=== PATIENT | male | born 1935 | race Caucasian/White ===

== ENCOUNTER 2023-11-15 20:32 | Inpatient (IN) | payer MEDICARE, OTHER ==
[~2023-11-15] VITALS: Ht 177.8 cm; Wt 75.8 kg
--- NOTE | 2023-11-15 20:38 | NUR ---
BIB [facility] FROM [facility] FOR AGITATION CLIENT DEVELOPMENT MANAGER TOOK ATIVAN 1MG. ARRIVED AT [facility] FROM [facility] TODAY BUT NOT ADMITTED, PLACED TO BED AND HOOKED INTO A MONITOR
--- NOTE | 2023-11-15 21:08 | NUR ---
MILL HOUSE SUPERVISOR AT BEDSIDE
--- NOTE | 2023-11-15 21:20 | NUR ---
IV INSERTED G18 R AC, BLOOD DRAWN SENT TO LAB,
--- NOTE | 2023-11-15 21:22 | NUR ---
URINE SPECIMEN COLLECTED SENT TO LAB
--- NOTE | 2023-11-15 21:25 | NUR ---
B2B MANAGED SERVICE SALES EXEC AT BEDSIDE
[2023-11-15] MEDS: IV NS 0.9% 1,000 ML BAG IV ONE (21:27)
[2023-11-15 21:32] LABS: BASOPHILS # (AUTO) 0.1 K/uL (0.0-0.2); BASOPHILS % (AUTO) 0.7 % (0.0-2.0); EOSINOPHILS # (AUTO) 0.1 K/uL (0.0-0.7); EOSINOPHILS % (AUTO) 1.1 % (0.0-6.0); HEMATOCRIT 30 % (39-51); HEMOGLOBIN 9.6 g/dL (13.5-17.5); LYMPHOCYTES # (AUTO) 2.1 K/uL (0.8-4.8); LYMPHOCYTES % (AUTO) 17.8 % (20.0-44.0); MEAN CORPUSCULAR HEMOGLOBIN 27 PG (26.0-33.0); MEAN CORPUSCULAR HGB CONC 33 g/dl (31.0-36.0); MEAN CORPUSCULAR VOLUME 84 fL (80-96); MONOCYTES # (AUTO) 1.4 K/uL (0.1-1.30); NEUTROPHILS # (AUTO) 8.1 K/uL (1.8-8.9); NEUTROPHILS % (AUTO) 68.4 % (43.0-81.0); PLATELET COUNT (AUTO) 526 K/uL (150-450); RED BLOOD CELL COUNT(AUTO) 3.54 MIL/uL (4.5-6.0); RED CELL DISTRIBUTION WIDTH 15.3 % (11.5-15.0); WHITE BLOOD COUNT (AUTO) 11.8 K/uL (4.3-11.0)
[2023-11-15 21:45] LABS: CALCIUM, SERUM 8.6 mg/dL (8.5-10.1); CARBON DIOXIDE 26 mmol/L (21-32); CHLORIDE 102 mmol/L (98-107); CREATININE 1.7 mg/dL (0.6-1.3); GLUCOSE 177 mg/dL (74-106); POTASSIUM 4.5 mmol/L (3.5-5.1); SODIUM SERUM 137 mmol/L (136-145); UREA NITROGEN, BLOOD 33 mg/dL (7-18)
[2023-11-15 22:13] LABS: APPEARANCE,URINE CLEAR (CLEAR); BILIRUBIN,URINE NEGATIVE (NEGATIVE); BLOOD, URINE NEGATIVE Ery/uL (NEGATIVE); COLOR,URINE YELLOW (YELLOW); KETONES,URINE 1+ mg/dL (NEGATIVE); LEUKOCYTE ESTERASE ,URINE NEGATIVE (NEGATIVE); NITRITE, URINE NEGATIVE (NEGATIVE); PROTEIN,URINE TRACE mg/dl (NEGATIVE); UGLUCOSE TRACE mg/dL (NEGATIVE); UROBILINOGEN,URINE 0.2 EU/dL (0.2)
[2023-11-15 22:27] LABS: ADD URINE CULTURE NO; BACTERIA,URINE Rare /HPF (None Seen); RBC,URINE 0-2 /HPF (0-2); SQUAMOUS EPITHELIAL CELL,UR Many /HPF (None Seen); WBC,URINE 0-2 /HPF (0-3)
--- NOTE | 2023-11-15 22:29 | NUR ---
310 BED 1
[2023-11-15] MEDS ORDERED: Z GUARD REMEDY 4 OZ OINT TP PRN (22:30)
[2023-11-15 22:41] LABS: AMPHETAMINE, URINE NEGATIVE (NEGATIVE); BARBITURATE, URINE NEGATIVE (NEGATIVE); BENZODIAZEPINE, URINE NEGATIVE (NEGATIVE); CANNABINOID, URINE NEGATIVE (NEGATIVE); COCCAINE, URINE NEGATIVE (NEGATIVE); OPIATE, URINE NEGATIVE (NEGATIVE); PHENCYCLIDINE SCREEN,URINE NEGATIVE (NEGATIVE)
--- NOTE | 2023-11-15 22:55 | NUR ---
OFERRED SIPS OF WATER ON HIF=GH FOWLERS POSITION, TOLERATED WELL, SAP OBSERVED.
--- NOTE | 2023-11-15 22:55 | NUR ---
OCEAN BIOLOGIST AT BEDSIDE
--- NOTE | 2023-11-15 23:04 | NUR ---
report given to Gloria DALE
--- NOTE | 2023-11-15 23:10 | NUR ---
TRASFERRED PATIENT TO ROOM 310
[2023-11-15 23:20] VITALS: BP 127/67; TEMP 97.9; O2SAT 96
--- NOTE | 2023-11-15 23:30 | NUR ---
ADMITTED PATIENT FROM ED DUE TO AGITATION DURING TRANSFER TO [facility]. SUPPOSED TO BE ADMITTED IN [facility], PATIENT WAS AGITATED DURING AMBULANCE TRANSPORT THAT THE FACILITY REFUSED TO ADMIT PATIENT. PER REPORT, WAS GIVEN ATIVAN EN ROUTE. DX DEHYDRATION AND ACUTE KIDNEY INJURY WITH CREATININE OF 1.7. ON ADMISSION, PATIENT IS ASLEEP, AROUSEABLE BY VOICE AND TOUCH, ANSWERS NAME, BIRTHDAY, LOCATION, CURRENT YEAR AND PRESIDENT. NO HOME MEDICATIONS, NS AT 75 ML/HR. SKIN ASSESSMENT, MULTIPLE SCRATCHES WITH SCABS, RIGHT BIG TOE WOUND AND LEFT KNEE WOUND. PASSED BEDSIDE SWALLOW EVAL. KEPT SAFE, WILL CONTINUE TO MONITOR.
[2023-11-15 23:50] VITALS: BP 122/67; TEMP 97.9; O2SAT 97
[2023-11-16] MEDS: IV NS 0.9% 1,000 ML IV SCH (00:19)
--- NOTE | 2023-11-16 03:20 | NUR ---
BVI 133 ML
--- NOTE | 2023-11-16 06:16 | NUR ---
NO URINE OUTPUT SINCE ADMISSION IN UNIT, BLADDER SCAN AT 0320H 133 ML AND AT 0533H, BVI > 200, NOTIFIED SAIRA HERNANDEZ, ORDERED IN AND OUT CATH IF BVI > 300, IF NO URINE OUTPUT AND STRAIGHT CATH PERFORMED X2, THEN INSERT CARRILLO. URINE OUTPUT VIA STRAIGHT CATH 400 ML.
[2023-11-16] MEDS: INSULIN REGULAR, HUMAN 100 UNIT/ML 3 ML VIAL SQ PRN ×2 (06:31→11:12)
--- NOTE | 2023-11-16 06:33 | NUR ---
CONFUSED, ALERT/ORIENTED X2, ROOM AIR, NO COMPLAIN OF PAIN, SLEPT FOR 8 HOURS. HAD EPISODE OF COMBATIVENESS DURING STRAIGHT CATH. WOUND CONSULT FOR SACRAL WOUND, RIGHT BIG TOE WOUND, LEFT KNEE ABRASION. RENAL US, RIGHT RENAL CYST. NS AT 75 ML/HR, URINARY RETENTION, SEE ORDER FOR STRAIGHT CATH, POSSIBLE CARRILLO CATHETER PLACEMENT IF NO URINE OUTPUT. FALL PRECAUTION, ACCUCHECK AND SLIDING SCALE.
[2023-11-16 06:39] LABS: BASOPHILS % (AUTO) 0.3 % (0.0-2.0); EOSINOPHILS # (AUTO) 0.2 K/uL (0.0-0.7); EOSINOPHILS % (AUTO) 3.2 % (0.0-6.0); HEMATOCRIT 31 % (39-51); HEMOGLOBIN 10.1 g/dL (13.5-17.5); MEAN CORPUSCULAR HEMOGLOBIN 28 PG (26.0-33.0); MEAN CORPUSCULAR HGB CONC 33 g/dl (31.0-36.0); MEAN CORPUSCULAR VOLUME 84 fL (80-96); MONOCYTES % (AUTO) 12.6 % (2.0-12.0); NEUTROPHILS # (AUTO) 4.4 K/uL (1.8-8.9); NEUTROPHILS % (AUTO) 57.9 % (43.0-81.0); PLATELET COUNT (AUTO) 504 K/uL (150-450); RED BLOOD CELL COUNT(AUTO) 3.68 MIL/uL (4.5-6.0); RED CELL DISTRIBUTION WIDTH 14.9 % (11.5-15.0); WHITE BLOOD COUNT (AUTO) 7.7 K/uL (4.3-11.0)
[2023-11-16 07:30] VITALS: BP 143/87; TEMP 98.1; O2SAT 100
[2023-11-16] MEDS: BLOOD SUGAR DIAGNOSTIC 1 EACH STRIP IN SCH ×2 (07:34→11:11)
[2023-11-16 07:36] LABS: CALCIUM, SERUM 8.9 mg/dL (8.5-10.1); CARBON DIOXIDE 23 mmol/L (21-32); CHLORIDE 106 mmol/L (98-107); CREATININE 1.4 mg/dL (0.6-1.3); GLUCOSE 112 mg/dL (74-106); MAGNESIUM 2.4 mg/dL (1.8-2.4); PHOSPHORUS 4.7 mg/dL (2.5-4.9); SODIUM SERUM 139 mmol/L (136-145); UREA NITROGEN, BLOOD 30 mg/dL (7-18)
--- NOTE | 2023-11-16 07:43 | NUR ---
RN OPENING NOTE RECEIVED PATIENT SLEEPING IN BED. AWAKENS TO VERBAL STIMULI. A/O X2, CONFUSED. PATIENT IS ON ROOM AIR, BREATHING EVENLY AND UNLABORED. NO DISTRESS. NO SHORTNESS OF BREATH NOTED AT THIS TIME. PATIENT HAS IV ACCESS ON RAC #18G. INTACT, PATENT, INFUSING NS @ 75ML/HR. FALL AND SAFETY MEASURES IN PLACE: BED ALARM ON, BED IN LOW AND LOCKED POSITION. CALL LIGHT AND TABLE WITHIN EASY REACH, SIDE RAILS UP X2. PLAN OF CARE ONGOING.
[2023-11-16] MEDS ORDERED: DOCU100T2 PO (08:29)
[2023-11-16] MEDS ORDERED: DIVA-76 PO (08:29)
[2023-11-16] MEDS ORDERED: LISI20TA30 PO (08:29)
[2023-11-16] MEDS ORDERED: EMPA10TA PO (08:29)
[2023-11-16] MEDS ORDERED: ATOR40TA PO (08:29)
[2023-11-16] MEDS ORDERED: TEMA15CA PO (08:29)
[2023-11-16] MEDS ORDERED: INSU100V28 SQ (08:29)
[2023-11-16] MEDS ORDERED: OMEP20CA15 PO (08:29)
[2023-11-16] MEDS ORDERED: DULO60CA45 PO (08:29)
[2023-11-16] MEDS ORDERED: GABA100C PO ×2 (08:29)
[2023-11-16] MEDS ORDERED: ASPI-1169 PO (08:29)
[2023-11-16] MEDS ORDERED: OLAN2.5T3 PO (08:29)
[2023-11-16] MEDS ORDERED: DEXTROSE 50%-WATER 50 ML DISP.SYRIN IV PRN ×2 (09:00)
--- NOTE | 2023-11-16 09:07 | NUR ---
WOUND CARE CONSULT: PT PRESENTS WITH SACRAL SCARRING, MULTIPLE AREAS OF DISCOLORATION/SCABS TO EXTREMITIES, DRY WOUNDS TO LEFT TOES, RT GREAT TOE OPEN BLISTER, RT LATERAL FOOT WOUND AND DRY SCAB/CALLUS TO RT LATERAL ANKLE WITH REDNESS, ALL PRESENT ON ADMISSION. DISCUSSED SKIN PROTECTION WITH NURSING STAFF. DR MAR CALLED FOR DPM CONSULTS. PT IS COMBATIVE AT TIMES PER NURSING STAFF. IN AGREEMENT WITH PLAN OF CARE. Addendum: 11/16/23 at 0911 by MARIELA WHITNEY WNDNU Amended: Links added.
[2023-11-16] MEDS: DOCUSATE SODIUM 100 MG CAPSULE PO SCH (09:11)
[2023-11-16] MEDS: DIVALPROEX SODIUM 250 MG TABLET.DR PO SCH (09:11)
[2023-11-16] MEDS: ASPIRIN 81 MG TAB.CHEW PO SCH (09:11)
[2023-11-16] MEDS: DULOXETINE HCL 30 MG CAPSULE.DR PO SCH (09:12)
[2023-11-16] MEDS: GABAPENTIN 100 MG CAPSULE PO SCH ×2 (09:12→21:07)
[2023-11-16] MEDS: PANTOPRAZOLE 40 MG TABLET.DR PO SCH (09:14)
[2023-11-16] MEDS: EMPAGLIFLOZIN 10 MG TABLET PO SCH (09:20)
[2023-11-16] MEDS: OLANZAPINE 10 MG VIAL IM STA ×2 (15:37→18:10)
--- NOTE | 2023-11-16 15:37 | NUR ---
RN NOTE PATIENT IS AGITATED, STARTED SHOUTING AND KICKING. HOSPITALIST MADE AWARE AND ORDERED ZYPREXA IM 5MG X1. ORDER PLACED. MED ADMINISTERED. WILL CONTINUE WITH PATIENT'S PLAN OF CARE.
[2023-11-16 16:00] VITALS: BP 114/73; TEMP 97.5; O2SAT 90
--- NOTE | 2023-11-16 17:48 | NUR ---
RN NOTE PATIENT STOOD UP FROM BED, ASSISTED BY CN AND WENT TO THE BATHROOM TO VOID. PATIENT VOIDED 400CC OF URINE.
[2023-11-16] MEDS: OLANZAPINE 10 MG VIAL IM ONE (17:54)
--- NOTE | 2023-11-16 17:54 | NUR ---
RN NOTE PATIENT IS AGITATED, STARTED SHOUTING, KICKING AND SPITTING. HOSPITALIST MADE AWARE AND ORDERED ZYPREXA IM 5MG X1. ORDER PLACED. MED ADMINISTERED. WILL CONTINUE WITH PATIENT'S PLAN OF CARE.
--- NOTE | 2023-11-16 19:00 | NUR ---
RN CLOSING NOTE PATIENT IS AWAKE IN BED. A/O X2, CONFUSED. PATIENT IS ON ROOM AIR, BREATHING EVENLY AND UNLABORED. NO DISTRESS. NO SHORTNESS OF BREATH NOTED AT THIS TIME. PATIENT HAS IV ACCESS ON RAC #18G. INTACT, PATENT, INFUSING NS @ 75ML/HR. DUE MEDS GIVEN. CARE RENDERED. NEEDS ATTENDED. FALL AND SAFETY MEASURES MAINTAINED: BED ALARM ON, BED IN LOW AND LOCKED POSITION. CALL LIGHT AND TABLE WITHIN EASY REACH, SIDE RAILS UP X2. ENDORSED TO AIRBORNE SENSOR SPECIALIST NURSE FOR CONTINUITY OF CARE.
--- NOTE | 2023-11-16 19:10 | NUR ---
MS RN OPENING NOTE RECEIVED PATIENT IN BED AWAKE, A/OX1 PATIENT IS CONFUSED AND AGITATED AT THE TIME, ABLE TO REORIENT PATIENT BUT EVENTUALLY GETS CONFUSED AGAIN, ON ROOM AIR NO SIGNS OF SOB AND DISTRESS, WITH AN IV ACCESS ON THE RIGHT AC #18G PATENT AND INTACT , WITH AN IVF OF NS RUNNING 2 75ML/HR, FALL SAFETY MEASURES MAINTAINED BED SET TO LOW AND LOCKED BED ALARM ON SIDE RAILS UPX3 PLACED CALL LIGHT, URINAL AND BEDSIDE TABLE WITHIN EASY REACH WILL CONTINUE WITH PLAN OF CARE,
[2023-11-16 20:00] VITALS: BP 147/92; TEMP 97.5; O2SAT 97
[2023-11-16] MEDS: LISINOPRIL (20MG) 20 MG TABLET PO SCH (21:07)
[2023-11-16] MEDS: OLANZAPINE 2.5 MG TABLET PO SCH (21:08)
[2023-11-16] MEDS: ATORVASTATIN 40 MG TABLET PO SCH (21:08)
[2023-11-16] MEDS ORDERED: TEMAZEPAM 15 MG CAPSULE PO PRN (22:00)
[2023-11-17] MEDS: ACETAMINOPHEN 325 MG TABLET PO PRN (00:23)
--- NOTE | 2023-11-17 03:13 | NUR ---
RN NOTE PATIENT HAS BEEN ABLE TO PEE WITHOUT THE HELP OF A STRAIGHT CATHETER WILL CONTINUE TO MONITOR PATIENT
[2023-11-17 06:36] LABS: BASOPHILS % (AUTO) 0.3 % (0.0-2.0); EOSINOPHILS # (AUTO) 0.2 K/uL (0.0-0.7); EOSINOPHILS % (AUTO) 1.3 % (0.0-6.0); HEMATOCRIT 35 % (39-51); HEMOGLOBIN 11.1 g/dL (13.5-17.5); LYMPHOCYTES # (AUTO) 2.1 K/uL (0.8-4.8); LYMPHOCYTES % (AUTO) 16.7 % (20.0-44.0); MEAN CORPUSCULAR HEMOGLOBIN 27 PG (26.0-33.0); MEAN CORPUSCULAR HGB CONC 32 g/dl (31.0-36.0); MEAN CORPUSCULAR VOLUME 86 fL (80-96); MONOCYTES # (AUTO) 1.4 K/uL (0.1-1.30); NEUTROPHILS % (AUTO) 70.7 % (43.0-81.0); PLATELET COUNT (AUTO) 523 K/uL (150-450); RED BLOOD CELL COUNT(AUTO) 4.07 MIL/uL (4.5-6.0); RED CELL DISTRIBUTION WIDTH 14.9 % (11.5-15.0); WHITE BLOOD COUNT (AUTO) 12.7 K/uL (4.3-11.0)
[2023-11-17 06:47] LABS: CALCIUM, SERUM 8.7 mg/dL (8.5-10.1); CARBON DIOXIDE 26 mmol/L (21-32); CHLORIDE 104 mmol/L (98-107); CREATININE 1.3 mg/dL (0.6-1.3); GLUCOSE 158 mg/dL (74-106); POTASSIUM 3.9 mmol/L (3.5-5.1); SODIUM SERUM 137 mmol/L (136-145); UREA NITROGEN, BLOOD 22 mg/dL (7-18)
--- NOTE | 2023-11-17 07:12 | NUR ---
MS RN CLOSING NOTE PATIENT IN BED SLEEPING, PATIENT IS CONFUSED, FREQUENTLY TRIED TO GET OUT OF BED, GAIT IS UNSTEADY, REORIENTED FREQUENTLY, ON ROOM AIR NO SIGNS OF SOB AND DISTRESS, WITH AN IV ACCESS ON THE RIGHT FOREARM #20G PATENT AND INTACT,SL, ALL DUE MEDS GIVEN, KEPT PATIENT CLEAN AND DRY, WOUND CARE DONE SAFETY AND FALL MEASURES MAINTAINED BED SET TO LOW AND LOCKED BED ALARM ON SIDE RAILS UPX3 PLACED CALL LIGHT BEDSIDE TABLE AND URINAL WITHIN EASY REACH WILL ENDORSE TO INCOMING NURSE FOR CONTINUITY OF CARE
--- NOTE | 2023-11-17 07:53 | NUR ---
RN OPENING NOTE PATIENT AWAKE IN BED RESTING. APPEARS COMFORTABLE. DENIES PAIN AT THIS TIME. A/OX1-2, CONFUSED AT TIMES. NO S/SX OF PAIN NOTED AT THIS TIME. ON ROOM AIR, BREATHING EVEN AND NON LABORED. WITH IV ACCESS ON LEFT UPPER ARM G20, PATENT INTACT AND FLUSHING WELL. WITH IVF OF NS RUNNING AT 75ML/HR ORDERED, REFUSING INFUSION AT THE MOMENT, WILL TRY AGAIN LATER. FALL AND SAFETY MEASURES IN PLACE. BED ALARM ON. BED IN LOW AND LOCKED POSITION. CALL LIGHT AND SIDE TABLE WITHIN EASY REACH. SIDE RAILS UP X3. WILL CONTINUE TO MONITOR.
[2023-11-17 08:00] VITALS: BP 144/84; TEMP 97.7; O2SAT 94
[2023-11-17] MEDS: OLANZAPINE 10 MG VIAL IM ONE (15:57)
--- NOTE | 2023-11-17 15:57 | NUR ---
RN NOTE PATIENT AGITATED, HITTING, KICKING, AND SPITTING ON STAFF TRYING TO REDIRECT BEHAVIOR. PATIENT HAS BEEN UNSAFELY MOBILIZING IN ROOM AND PEEING ON THE FLOOR. WHEN STAFF COMES IN TO HELP AND REDIRECT, PATIENT STARTS HITTING OUT AND KICKING. DR. IRIZARRY INFORMED. ZYPREXA 0.3MG IM ONCE NOW ORDERED. SAME GIVEN PER EMAR. WILL CONTINUE TO MONITOR.
[2023-11-17 16:00] VITALS: BP 160/100; TEMP 98; O2SAT 98
--- NOTE | 2023-11-17 17:00 | NUR ---
RN NOTE PATIENT STILL WALK AROUND UNSAFELY, BUT ABLE TO BE REDIRECTED AT TIMES. NO AGGRESSIVE BEHAVIOR NOTED FOR NOW.
[2023-11-17] MEDS: GLUCERNA SHAKE 237 ML CAN PO SCH (17:27)
[2023-11-17] MEDS: DIVALPROEX SODIUM 250 MG TABLET.DR PO SCH (17:39)
--- NOTE | 2023-11-17 18:30 | NUR ---
RN CLOSING NOTE PATIENT AWAKE IN BED RESTING. APPEARS COMFORTABLE. A/OX2, UKRAINIAN SPEAKER, UNDERSTANDS A LITTLE SAMI. NO S/SX OF PAIN NOTED AT THIS TIME. ON ROOM AIR, BREATHING EVEN AND NON LABORED. WITH RIGHT CHEST WALL PERMACATH FOR HD. WITH IV ACCESS ON LEFT AC G20, PATENT INTACT AND FLUSHING WELL. IV SALINE LOCKED. PATIENT WITH COLOSTOMY, BM COMING OUT OF OSTOMY NOTED. ONE FULL BAG CHANGE THIS SHIFT. FALL AND SAFETY MEASURES IN PLACE. BED ALARM ON. BED IN LOW AND LOCKED POSITION. CALL LIGHT AND SIDE TABLE WITHIN EASY REACH. SIDE RAILS UP X3. SCHEDULED MEDICATIONS ADMINISTERED. WOUND CARE IMPLEMENTED. PATIENT TURNED AND REPOSITIONED PER PROTOCOL. ALL NEEDS ATTENDED AND ANTICIPATED. WILL ENDORSE TO OPERATIONS DEVELOPER NURSE.
--- NOTE | 2023-11-17 18:30 | NUR ---
RN CLOSING NOTE PATIENT AWAKE,RESTING STANDING IN HALLWAY. APPEARS COMFORTABLE. DENIES PAIN AT THIS TIME. A/OX1-2, CONFUSED AT TIMES. NO S/SX OF PAIN NOTED AT THIS TIME. ON ROOM AIR, BREATHING EVEN AND NON LABORED. WITH IV ACCESS ON LEFT UPPER ARM G20, PATENT INTACT AND FLUSHING WELL. WITH IVF OF NS RUNNING AT 75ML/HR ORDERED, PATIENT HAS BEEN OUT OF BED A LOT RISKING PULLING OUT IV. IVFLUIDS INTERRUPTED MOST OF THE DAY. FALL AND SAFETY MEASURES IN PLACE. BED ALARM ON. BED IN LOW AND LOCKED POSITION. CALL LIGHT AND SIDE TABLE WITHIN EASY REACH. SIDE RAILS UP X3. SCHEDULED MEDICATIONS ADMINISTERED. WOUND CARE IMPLEMENTED. PATIENT TURNED AND REPOSITIONED PER PROTOCOL. ALL NEEDS ATTENDED AND ANTICIPATED. WILL ENDORSE TO SCAFFOLD BUILDER NURSE.
--- NOTE | 2023-11-17 19:00 | NUR ---
MS RN OPENING NOTES RECEIVED AWAKE SITTING ON CHAIR. A/O X1. WITH CONFUSION AND FORGETFULNESS. ON ROOM AIR TOLERATING WELL WITHOUT ANY RESPIRATORY DISTRESS NOTED. WITH IV ACCESS AT DOMENICO #20 SL. PATENT AND INTACT. SAFETY MEASURES IMPLEMENTED. SIDE RAILS X2. BED LOCKED AND IN LOWEST POSITION. WILL CONTINUE PLAN OF CARE.
[2023-11-17 20:00] VITALS: BP 124/91; TEMP 98; O2SAT 94
[2023-11-17] MEDS: ONDANSETRON HCL/PF 4 MG/2 ML VIAL IVP PRN (20:50)
[2023-11-17] MEDS: OLANZAPINE 2.5 MG TABLET PO SCH (21:04)
--- NOTE | 2023-11-18 03:52 | NUR ---
RN NOTES PATIENT JUST CONSUMED IV NS @ 75 ML/HR. UNABLE TO FINISH EARLIER DUE TO GETTING OUT OF BED AND SITTING OUTSIDE HIS ROOM.
--- NOTE | 2023-11-18 06:32 | NUR ---
MS RN CLOSING NOTES PATIENT AWAKE ON BED. A/O X1 STILL WITH CONFUSION AND FORGETFULNESS. ON ROOM AIR TOLERATED WELL WITHOUT ANY RESPIRATORY DISTRESS NOTED THE WHOLE SHIFT. WITH IV ACCESS AT LEFT UPPER ARM G.20 RUNNING NS @ 75 ML/HR. PATENT AND INTACT. NEEDS ATTENDED. KEPT COMFORTABLE. SAFETY MEASURES MAINTAINED THE WHOLE SHIFT. DUE MEDS GIVEN. ENDORSED TO MORNING SHIFT NURSE.
[2023-11-18 06:40] LABS: BASOPHILS # (AUTO) 0.1 K/uL (0.0-0.2); BASOPHILS % (AUTO) 0.4 % (0.0-2.0); EOSINOPHILS # (AUTO) 0.3 K/uL (0.0-0.7); EOSINOPHILS % (AUTO) 1.5 % (0.0-6.0); HEMATOCRIT 35 % (39-51); HEMOGLOBIN 10.9 g/dL (13.5-17.5); LYMPHOCYTES # (AUTO) 2.4 K/uL (0.8-4.8); LYMPHOCYTES % (AUTO) 14.6 % (20.0-44.0); MEAN CORPUSCULAR HEMOGLOBIN 27 PG (26.0-33.0); MEAN CORPUSCULAR HGB CONC 31 g/dl (31.0-36.0); MEAN CORPUSCULAR VOLUME 86 fL (80-96); MONOCYTES # (AUTO) 1.3 K/uL (0.1-1.30); MONOCYTES % (AUTO) 7.7 % (2.0-12.0); NEUTROPHILS # (AUTO) 12.7 K/uL (1.8-8.9); NEUTROPHILS % (AUTO) 75.8 % (43.0-81.0); PLATELET COUNT (AUTO) 605 K/uL (150-450); RED BLOOD CELL COUNT(AUTO) 4.08 MIL/uL (4.5-6.0); RED CELL DISTRIBUTION WIDTH 15.1 % (11.5-15.0); WHITE BLOOD COUNT (AUTO) 16.8 K/uL (4.3-11.0)
[2023-11-18 06:47] LABS: CALCIUM, SERUM 9.1 mg/dL (8.5-10.1); CARBON DIOXIDE 21 mmol/L (21-32); CHLORIDE 103 mmol/L (98-107); CREATININE 1.2 mg/dL (0.6-1.3); GLUCOSE 105 mg/dL (74-106); POTASSIUM 4.5 mmol/L (3.5-5.1); SODIUM SERUM 137 mmol/L (136-145); UREA NITROGEN, BLOOD 22 mg/dL (7-18)
[2023-11-18] MEDS ORDERED: IV NS 0.9% 1,000 ML IV PRN (07:13)
--- NOTE | 2023-11-18 07:27 | NUR ---
RN OPENING NOTE Received pt in bed, awake. A/O x 1, confused and forgetful, no c/o pain/discomfort noted at this time. On room air, tolerating well. IV access in DOMENICO #20g, sl. Safety measures maintained. Will continue with plan of care.
[2023-11-18 08:28] VITALS: BP 120/98; TEMP 98.2; O2SAT 95
[2023-11-18] MEDS: OLANZAPINE 2.5 MG TABLET PO SCH (12:27)
--- NOTE | 2023-11-18 14:14 | NUR ---
SECURITY MANAGEMENT SPECIALIST NOTE Pt discharged to [facility] in stable condition. A/O x 1, confused, no c/o pain/discomfort noted at this time. On room air, tolerating well. All belongings accounted for. Report given to Ana DALE, verbalized understanding. Pt is uncooperative, unable to take photo on skin issues. Tried to call Hao Mathew to inform regarding pt's dc but unavailable. Discharge packet given to EMT. IV access removed, clean and dry dressing applied, no active bleeding noted. Pt left the unit at 1405 accompanied by 2 EMT. MD and Charge Nurse aware of discharge.
== END 2023-11-18 14:00 | DRG 682 ==
LOC: ER 20:41 → MED 22:49
PROVIDERS: ATTEND Nurse Practitioner Acute Care
DX: N17.0 Acute kidney failure with tubular necrosis (principal); G93.41 Metabolic encephalopathy; F05 Delirium due to known physiological condition; E86.0 Dehydration; D64.9 Anemia, unspecified; D72.829 Elevated white blood cell count, unspecified; E11.40 Type 2 diabetes mellitus with diabetic neuropathy, unspecified; E11.621 Type 2 diabetes mellitus with foot ulcer; F29 Unspecified psychosis not due to a substance or known physiological condition; F41.9 Anxiety disorder, unspecified; I10 Essential (primary) hypertension; J44.9 Chronic obstructive pulmonary disease, unspecified; M89.8X9 Other specified disorders of bone, unspecified site; L97.512 Non-pressure chronic ulcer of other part of right foot with fat layer exposed; L97.522 Non-pressure chronic ulcer of other part of left foot with fat layer exposed; F39 Unspecified mood [affective] disorder; F31.9 Bipolar disorder, unspecified; F25.9 Schizoaffective disorder, unspecified; G31.84 Mild cognitive impairment of uncertain or unknown etiology
CPT/HCPCS: 36415; 71045-TC; 76770-TC; 80048-TC; 81001; 82962-TC; 83735-TC; 84100-TC; 84484-TC; 85025-TC; 97110-TC; 97530-TC; A4223; G0378; J1815; J2405; J3490; J7030